=== PATIENT | female | born 1975 | race Caucasian/White ===

== ENCOUNTER → 2018-11-10 | Outpatient (CLI) | payer MEDICAID ==
[~2018-11-10] MED LIST: CATHETER FLUSH 10 ML SYR IV PRN; REGADENOSON 0.4 MG/5 ML SYR (LEXISCAN) IV ONE
--- NOTE | 2018-11-11 00:17 | STRESS TEST ---
DATE OF SERVICE: 11/10/2018 LEXISCAN MYOVIEW STRESS TEST REPORT REFERRING PHYSICIAN: Carmela Aparicio MD Baseline heart rate is 83, baseline blood pressure 137/88. Baseline EKG is sinus rhythm with no ischemic changes. In summary, the patient was injected with 9.9 mCi of technetium-99 Myoview and the resting images were obtained. Then, the patient received 0.4 mg of Lexiscan followed by 28.7 mCi of technetium-99 Myoview. Throughout the test, there were no EKG changes. The resting and stress images were reviewed and compared in the short axis, horizontal long axis, and vertical long axis views. Review of the images showed breast attenuation with decreased uptake involving the mid to apical anterior wall and anterolateral wall with mild reversibility. SSS is 7, SDS 6, transient ischemic dilatation with TID value 1.8. On the gated images, the left ventricle appeared to be in normal size with normal contractility. Calculated ejection fraction 63%. CONCLUSIONS: 1. The patient tolerated Lexiscan well. 2. Breast attenuation with reversible ischemia involving the mid to apical anterior wall and anterolateral wall. 3. Transient ischemic dilatation with TID value 1.8. 4. Normal left ventricular size with normal contractility, calculated ejection fraction 63%. Job ID: [id number] DocumentID: [id number] Dictated Date: 11/10/2018 19:49:29 Drywall Taper Helper Date: 11/11/2018 00:16:16 Dictated By: HENOK BREAUX MD
== END ==
LOC: CARD 08:29
PROVIDERS: ATTEND Internal Medicine Cardiovascular Disease
DX: E11.9 Type 2 diabetes mellitus without complications (principal); I10 Essential (primary) hypertension; E66.9 Obesity, unspecified; F41.9 Anxiety disorder, unspecified; I99.8 Other disorder of circulatory system
CPT/HCPCS: 78452; 93017

== ENCOUNTER → 2018-11-11 | Outpatient (CLI) | payer MEDICAID | LOC: CARD 12:45 → EDUNIT# 13:00 | PROVIDERS: ATTEND Internal Medicine Cardiovascular Disease | DX: E11.9 Type 2 diabetes mellitus without complications (principal); I10 Essential (primary) hypertension; E66.9 Obesity, unspecified; F41.9 Anxiety disorder, unspecified | CPT/HCPCS: 93306 ==

== ENCOUNTER 2018-11-17 12:34 | Day surgery (SDC) | payer MEDICAID ==
[~2018-11-17] VITALS: Ht 170.2 cm; Wt 129.7 kg
[2018-11-17] VITALS (7 sets, daily range): BP systolic 146–181; BP diastolic 84–107
[2018-11-17 13:03] LABS: HEMOGLOBIN 13.4 G/DL (11.5-16.0); MEAN PLATELET VOLUME 10.1 FL (7.4-10.4); RED CELL DISTRIBUTION WIDTH 14.5 % (10.0-14.5); WHITE BLOOD COUNT 9.5 10^3/uL (4.3-11.0)
--- NOTE | 2018-11-17 13:16 | Diagnostic Imaging Report ---
INDICATION: Preop for heart catheterization. TIME OF EXAM: 01:03 p.m. COMPARISON: No prior studies are available for comparison. FINDINGS: The heart size is normal. The pulmonary vascularity is unremarkable. The lungs are clear. No infiltrate, effusion or pneumothorax is detected. IMPRESSION: No acute cardiopulmonary process is detected. Dictated by: Dictated on workstation # [id number]
[2018-11-17 13:17] LABS: ALBUMIN 4.2 GM/DL (3.2-4.5); BILIRUBIN,TOTAL 0.5 MG/DL (0.1-1.0); CALCIUM 9.8 MG/DL (8.5-10.1); CREATININE SERUM 1.57 MG/DL (0.60-1.30); POTASSIUM 3.7 MMOL/L (3.6-5.0); TOTAL PROTEIN 7.8 GM/DL (6.4-8.2)
[2018-11-17 13:22] LABS: INR 0.9 (0.8-1.4); PROTHROMBIN TIME PATIENT 12.5 SEC (12.2-14.7)
[2018-11-17] MEDS ORDERED: INSU100I14 SQ (14:21)
[2018-11-17] MEDS ORDERED: RANI-613 PO (14:21)
[2018-11-17] MEDS ORDERED: DIPH25CA79 PO (14:21)
[2018-11-17] MEDS ORDERED: LISI1TAB10 PO (14:21)
[2018-11-17] MEDS ORDERED: DESV100T PO (14:21)
[2018-11-17] MEDS ORDERED: LAMO25TA75 PO (14:21)
[2018-11-17] MEDS ORDERED: CHOL2000 PO (14:21)
[2018-11-17] MEDS ORDERED: ACET-93 PO (14:21)
[2018-11-17] MEDS ORDERED: CRAN450C PO (14:21)
[2018-11-17] MEDS ORDERED: ALPR0.5T PO (14:21)
[2018-11-17] MEDS ORDERED: INSU100I29 SQ ×2 (14:21)
[2018-11-17] MEDS ORDERED: NFBIOT1000 PO ×2 (14:21)
[2018-11-17] MEDS ORDERED: MULT-1049 PO (14:21)
[2018-11-17] MEDS ORDERED: NIFE30TA89 PO (14:21)
--- NOTE | 2018-11-17 14:22 | NUR ---
SPOKE WITH PT, WELL GOING THRU THE EXT MED HISTORY( NOTHING WAS LISTED) TO COMPLETE THE MED REC. I WENT OVER ALL HER MEDS THAT WERE LISTED IN HER CHART AND SHE WAS ABLE TO VERIFY THAT SHE WAS INDEED ON ALL THE MEDS I LISTED , WELL TELL ME HOW SHE TAKES THEM. OTC MEDS: TYLENOL 500M TABS PRN BENADRYL 25M TAB PRN CRANBERRY: 1 DAILY VITAMIN D: 1 DAILY MULTIVITAMIN: 4 TABS DAILY RANIDINE: 1 TAB DAILY AND 1 PRN BIOTIN: 1 DAILY
[2018-11-17] MEDS ORDERED: NS IV 1000 ML 1,000 ML ONE (14:23)
--- NOTE | 2018-11-17 14:34 | Cardiac Procedure Note-CS/ASA ---
Pre-Procedure Note Pre-Op Procedure Note H&P Reviewed The H&P was reviewed, patient examined and no changes noted. Date H&P Reviewed: Nov 17, 2018 Time H&P Reviewed: 14:34 Conscious Sedation Pre-Proced Time 14:34 ASA Score 3 For ASA 3 and 4: Consider anesthesia and medical clearance. Also, for patients with a history of failed moderate sedation consider anesthesia. Airway Lungs Heart ASA score ASA 1: a normal healthy patient ASA 2: a patient with a mild systemic disease (mid diabetes, controlled hypertension, obesity x ASA 3: a patient with a severe systemic disease that limits activity (angina, COPD, prior Myocardial infarction) ASA 4: a patient with an incapacitating disease that is a constant threat to life (CHF, renal failure) ASA 5: a moribund patient not expected to survive 24 hrs. (ruptured aneurysm) ASA 6: a declared brain- patient whose organs are being harvested. For emergent operations, add the letter E after the classification Mallampati Classification Grade 3 Sedation Plan Analgesia, Amnesia, Plan communicated to team members, Discussed options with patient/fam, Discussed risks with patient/fam The patient is an appropriate candidate to undergo the planned procedure, sedation, and anesthesia. The patient immediately re-assessed prior to indication. HENOK BREAUX MD Nov 17, 2018 14:34
[2018-11-17] MEDS ORDERED: VERAPAMIL 5 MG/2 ML (CALAN) VIAL IV ONE (14:35)
[2018-11-17] MEDS ORDERED: fentaNYL INJECTION 100 MCG/2 ML AMP ONE ×2 (14:35→15:32)
[2018-11-17] MEDS ORDERED: MIDAZOLAM 5 MG/5 ML (VERSED) VIAL ONE (14:35)
[2018-11-17] MEDS ORDERED: NITRO DRIP 25000 MCG/D5W 250 ML IV ONE (14:35)
[2018-11-17] MEDS ORDERED: HEParin 1000 UNIT/ML (10ML VIAL) FOR BOLUS ONE (14:35)
[2018-11-17] MEDS ORDERED: NS IV 1000 ML 1,000 ML IV ONE (14:45)
[2018-11-17] MEDS ORDERED: MIDAZOLAM 2 MG/2 ML (VERSED) VIAL ONE (15:32)
[2018-11-17] MEDS ORDERED: NS IV 1000 ML 1,000 ML IV SCH (15:48)
--- NOTE | 2018-11-17 15:54 | Discharge Inst-Post CATH ---
Discharge Inst-CATH/EP Problems Reviewed?: Yes Post Cardiac Cath/EP D/C Inst Follow Up/Plan Appointment with Dr. Mark's office in 2-4 weeks <b>CARDIAC CATH/EP PROCEDURE DISCHARGE INSTRUCTIONS</b> ACTIVITY * Go Home directly and rest. * Limit activity of the leg (or wrist if it was used) for 7 days including aerobics, swimming, jogging, bicycling, etc. * Restrict stair-climbing for 7 days if possible, if not, climb up with your non-cath leg, then bring together on the same step. * Avoid lifting, pushing, pulling or excessive movement of the affected extremity for 7 days. * Customary sexual activity may be resumed after 2 days-use caution not to use a position that strains or causes pain to the affected extremity. * No driving for 24 hours. * NO SMOKING. * Avoid straining for bowel movements for 7 days. * Gentle walking on level ground is allowed. * Returning to work will depend on the type of procedure and the results. Your doctor will discuss this with you. CALL YOUR DOCTOR FOR ANY OF THE FOLLOWING: *If bleeding from the puncture site occurs- Apply gentle pressure to site with clean cloth and call your doctor or EMS. * If a knot or lump forms under the skin, increases in size, or causes pain. * If bruising appears to be worsening or moving further down your leg instead of disappearing. * Temperature above 101 F. CARE OF YOUR GROIN INCISION; * Bruising or purple discoloration of the skin near the puncture site is common. * You may shower only, no bathtub bathing for 5 days. Be careful to avoid slipping as your leg may feel stiff. * If a closure device was used on your femoral artery, please see the attached guide regarding care of the device and your leg. * Leave dressing on FOR 24 hours. CARE OF YOUR WRIST INCISION; * Bruising or purple discoloration of the skin near the puncture site is common. * You may shower. * DO NOT submerge wrist. * Leave dressing on FOR 24 hours. HENOK MARK MD Nov 17, 2018 15:54
--- NOTE | 2018-11-17 15:59 | Cardiac Cath Report ---
Cardiac Cath Report Physician (s)/Art Psychotherapist Or Therapist (s) Physician HENOK BREAUX MD Pre-Procedure Diagnosis Pre-Procedure Diagnosis: coronary artery disease Post-Procedure Note Procedure Start Date: Nov 17, 2018 Name of Procedure: left heart catheterization Findings/Procedure Note PROCEDURE NOTE: and 43 years old lady with history of hypertension, polycystic kidney disease, had a stress test, scheduled for cardiac catheterization possible PTCA. After explaining the procedure to the patient, all pros and cons were explained, all questions were answered. The patient signed the consent and then she was placed on the cardiac catheterization laboratory. Groin was prepped SL fashion local anesthesia was used. Sheath placed in the radial artery, [place] catheter was used advanced to the left ventricular cavity angiogram was not done, pressu re was measured, pullback LV to aorta was done then the catheter was pulled and return to the right coronary system and angiogram was done. I was unable to intubate the left coronary system with a [place] catheter I exchanged it over a long J-wire into Perez left 3.5 catheter and intubated the left circumflex system, patient has separate ostium, angiogram to the circumflex system was made. Multiple attempted to intubate the LAD system has failed I tried with MP1 and was able to achieve nonselective angiogram to the LAD system. Due to the underlying polycystic kidney disease and renal insufficiency I decided to to be satisfied with nonselective angiogram to limit the amount of contrast exposure At the end of the procedure the sheath was removed. vascular band was used FINDINGS: Hemodynamics LV 122/12, end-diastolic pressure of 12 Aorta 128/83 mean of 94 ANATOMY: Left Main is absent, separate ostium of the LAD and circumflex system Left Anterior Descending is moderate in size with mild disease in the midportion nonobstructive disease Left Circumflex is moderate in size with 50 percent stenosis in the proximal ramus intermedius/high obtuse marginal branch otherwise mild disease nonobstructive disease Right Coronory Artery is dominant artery with no obstructive disease LV Gram was not done, pressure was measured CONCLUSION: 1. Absent left main, patient has separate ostium for the LAD and circumflex system 2. 50 percent stenosis in the proximal ramus intermedius/high obtuse marginal branch, nonobstructive disease otherwise in the circumflex system 3. Mild disease in the LAD, dominant right coronary system with mild disease no obstructive disease 4. Normal left ventricular end-diastolic pressure DISCUSSION AND RECOMMENDATION: medical therapy is recommended no intervention is needed Anesthesia Type: Conscious Sedation Estimated blood loss (mL): 15 ml Contrast Amount: 45 ml Total Radiation Dose: 976 mGy Post-Procedure Diagnosis Post-operative diagnosis: Chest pain Coronary artery disease Hypertension Hyperlipidemia HENOK BREAUX MD Nov 17, 2018 15:59
== END 2018-11-17 19:00 | disposition home or self-care (01) ==
LOC: CATH 12:34 → ICU 16:18 → CATH 19:00
PROVIDERS: ATTEND Internal Medicine Cardiovascular Disease
DX: I25.10 Atherosclerotic heart disease of native coronary artery without angina pectoris (principal); I10 Essential (primary) hypertension; E78.5 Hyperlipidemia, unspecified; E11.9 Type 2 diabetes mellitus without complications; E66.9 Obesity, unspecified; F41.9 Anxiety disorder, unspecified; Q61.3 Polycystic kidney, unspecified; Z91.041 Radiographic dye allergy status; Z88.6 Allergy status to analgesic agent; Z88.8 Allergy status to other drugs, medicaments and biological substances; Z79.4 Long term (current) use of insulin; Z79.899 Other long term (current) drug therapy; Z68.41 Body mass index [BMI] 40.0-44.9, adult; Z82.49 Family history of ischemic heart disease and other diseases of the circulatory system; Z84.1 Family history of disorders of kidney and ureter; Z83.3 Family history of diabetes mellitus
CPT/HCPCS: 36415; 71045; 80053; 84703; 85027; 85610; 85730; 87081; 93458

== ENCOUNTER → 2018-11-23 | Outpatient (CLI) | payer MEDICAID ==
[~2018-11-23] MED LIST changes: +ACET-93 PO; +ALPR0.5T PO; -CATHETER FLUSH 10 ML SYR IV PRN; +CHOL2000 PO; +CRAN450C PO; +DESV100T PO; +DIPH25CA79 PO; +INSU100I14 SQ; +INSU100I29 SQ; +LAMO25TA75 PO; +LISI1TAB10 PO; +MULT-1049 PO; +NFBIOT1000 PO; +NIFE30TA89 PO; +RANI-613 PO; -REGADENOSON 0.4 MG/5 ML SYR (LEXISCAN) IV ONE
--- NOTE | 2018-11-23 16:36 | Diagnostic Imaging Report ---
INDICATION: Preop evaluation, weight loss surgery. FINDINGS: Cardiomediastinal and hilar contours are normal. The lungs are clear. No failure, effusion or pneumothorax. No free air beneath the diaphragm. IMPRESSION: Negative. Dictated by: Dictated on workstation # [id number]
== END ==
LOC: RAD 10:08
PROVIDERS: ATTEND Nurse Practitioner Family
DX: Z01.811 Encounter for preprocedural respiratory examination (principal); J30.9 Allergic rhinitis, unspecified
CPT/HCPCS: 71046

== ENCOUNTER 2018-12-24 20:31 | Outpatient (CLI) | payer MEDICAID | END 2018-12-25 06:15 | disposition home or self-care (01) | LOC: SLEEP 20:31 | PROVIDERS: ATTEND Nurse Practitioner Family | DX: G47.61 Periodic limb movement disorder (principal); G47.36 Sleep related hypoventilation in conditions classified elsewhere; E11.9 Type 2 diabetes mellitus without complications; Q61.3 Polycystic kidney, unspecified | CPT/HCPCS: 95810 ==

== ENCOUNTER → 2018-12-27 | Outpatient (CLI) | payer MEDICAID ==
[~2018-12-27] MED LIST changes: +RT-ALBUTEROL SULF 2.5 MG/3 ML PRE-MIX VIAL INH ONE
== END ==
LOC: RT 07:46
PROVIDERS: ATTEND Nurse Practitioner Family
DX: J30.9 Allergic rhinitis, unspecified (principal)
CPT/HCPCS: 94060; 94726; 94729

== ENCOUNTER → 2019-01-14 | Outpatient (CLI) | payer MEDICAID ==
[~2019-01-14] MED LIST changes: -RT-ALBUTEROL SULF 2.5 MG/3 ML PRE-MIX VIAL INH ONE
--- NOTE | 2019-01-14 14:47 | Diagnostic Imaging Report ---
PROCEDURE: CT chest without contrast with high resolution images. TECHNIQUE: Multiple contiguous axial images were obtained through the chest without the use of intravenous contrast. Auto Exposure Controls were utilized during the CT exam to meet ALARA standards for radiation dose reduction. Additional high-resolution images were also obtained in inspiration and expiration in both supine and prone positioning. DATE: January 14, 2019. COMPARISON: Chest radiographs November 23, 2018. INDICATION: 43-year-old female, dyspnea. FINDINGS: There is no identified pulmonary nodule or lung mass. There is no focal airspace consolidation. There is no pneumothorax. There is no pleural effusion. The central airways are patent. There is no bronchiectasis. There is no peripheral honeycombing. There are no peripheral reticular lung opacities. The heart is not enlarged. There is no identified pericardial effusion. There is no identified abnormally enlarged mediastinal or axillary lymph node which meets CT size criteria for adenopathy. There is diffuse fatty infiltration of the liver. The patient is status post cholecystectomy. There are multiple incompletely imaged low attenuation exophytic left renal lesions. Internal attenuation of the lesions is compatible with benign cyst in their imaged portions although they cannot be definitively characterized as they are incompletely imaged. Additional very limited evaluation of the upper abdomen is unremarkable. There is no identified acute bony abnormality. IMPRESSION: CT CHEST. 1. Unremarkable CT appearance of the lungs. 2. Diffuse fatty infiltration of the liver. 3. Multiple probable benign left renal cyst although the left renal lesions are incompletely imaged and cannot be definitively characterized. Dictated by: Dictated on workstation # [id number]
== END ==
LOC: RAD 13:33
PROVIDERS: ATTEND Nurse Practitioner Family
DX: J45.909 Unspecified asthma, uncomplicated (principal); G47.36 Sleep related hypoventilation in conditions classified elsewhere; R94.2 Abnormal results of pulmonary function studies; K76.0 Fatty (change of) liver, not elsewhere classified
CPT/HCPCS: 71250